=== PATIENT | female | born 1955 | race Caucasian/White ===

== ENCOUNTER 2021-08-01 10:23 | Day surgery (SDC) | payer OTHER, SELFPAY ==
[2021-07-29 10:10] LABS: BASOPHILS % (AUTO) 0.6 % (0.0-2.0); EOSINOPHILS # (AUTO) 0.1 K/uL (0.0-0.4); EOSINOPHILS % (AUTO) 1.2 % (0.0-4.0); HEMATOCRIT 38.9 % (36-48); LYMPHOCYTES % (AUTO) 39.8 % (20.5-51.5); MEAN CORPUSCULAR HEMOGLOBIN 29 pg (27-31); MEAN CORPUSCULAR HGB CONC 33 % (32-36); MEAN CORPUSCULAR VOLUME 87 fL (79.0-98.0); MONOCYTES # (AUTO) 0.4 K/uL (0.0-1.0); MONOCYTES % (AUTO) 5.3 % (1.7-9.3); NEUTROPHILS % (AUTO) 53.1 % (40.0-70.0); PLATELET COUNT (AUTO) 248 K/uL (130-430); RED BLOOD CELL COUNT(AUTO) 4.45 MIL/uL (4.2-6.2); RED CELL DISTRIBUTION WIDTH 13.1 % (9.0-15.0); WHITE BLOOD COUNT (AUTO) 7.5 K/uL (4.8-10.8)
[2021-07-29 10:16] LABS: BILIRUBIN,URINE NEGATIVE (NEGATIVE); BLOOD, URINE 1+ (NEGATIVE); CLARITY/URINE CLEAR (CLEAR); COLOR,URINE YELLOW (YELLOW); GLUCOSE,URINE NEGATIVE (NEGATIVE); KETONES,URINE NEGATIVE (NEGATIVE); LEUKOCYTE ESTERASE ,URINE TRACE (NEGATIVE); NITRITE, URINE NEGATIVE (NEGATIVE); PROTEIN URINE NEGATIVE (NEGATIVE); UROBILINOGEN,URINE 0.2 (0.2-1.0)
[2021-07-29 10:36] LABS: CALCIUM 10.3 mg/dL (8.4-11.0); CREATININE 0.6 mg/dL (0.55-1.30); POTASSIUM 3.9 mmol/L (3.5-5.1)
[2021-07-29 10:50] LABS: PROTHROMBIN TIME 9.8 SECS (9.5-12.5)
[2021-07-29 11:22] LABS: BACTERIA,URINE RARE /HPF (None Seen); MUCUS,URINE 1+ /LPF (None Seen)
[~2021-08-01] VITALS: Ht 162.6 cm; Wt 88.0 kg
[2021-08-01] MEDS ORDERED: PROPOFOL 200MG/ 20ML VIAL (DIPRIVAN) IV ONE (12:07)
[2021-08-01] MEDS ORDERED: NS IRRIG SOLN 1000 ML IR ONE (12:07)
[2021-08-01] MEDS ORDERED: fentaNYL CITRATE/PF 100 MCG/2 ML AMP ONE (12:07)
[2021-08-01] MEDS ORDERED: BUPIVACAINE /EPINEPHRINE/PF 0.25% 30 ML VIAL INJ ONE (12:07)
[2021-08-01] MEDS ORDERED: LR 1,000 ML IV.SOLN IV ONE (12:07)
[2021-08-01] MEDS ORDERED: DEXAMETHASONE SOD PHOSPHATE 4 MG/ML VIAL ONE (12:07)
[2021-08-01] MEDS ORDERED: KETOROLAC TROMETHAMINE 30 MG VIAL ONE (12:07)
[2021-08-01] MEDS ORDERED: ONDANSETRON HCL 4 MG/2 ML VIAL ONE (12:07)
[2021-08-01] MEDS ORDERED: ISOFLURANE 15 MIN GAS INH ONE (12:07)
[2021-08-01] MEDS ORDERED: ACETAMINOPHEN I.V. 1000 MG 100 ML IV PRN (13:00)
[2021-08-01] MEDS ORDERED: HYDROmorphone 1 MG/ML INJ. CARTRIDGE ONE (13:07)
[2021-08-01] MEDS: HYDROmorphone 1 MG/ML INJ. CARTRIDGE IVP PRN ×2 (13:15→13:30)
[2021-08-01 16:34] VITALS: BP_SYST 135
== END 2021-08-01 15:15 | disposition home or self-care (01) ==
LOC: SDS 10:23 → SMU 10:25 → SDS 15:15
PROVIDERS: ATTEND Orthopaedic Surgery
DX: S53.22XA Traumatic rupture of left radial collateral ligament, initial encounter (principal); S63.642A Sprain of metacarpophalangeal joint of left thumb, initial encounter; E11.9 Type 2 diabetes mellitus without complications; E66.9 Obesity, unspecified; I10 Essential (primary) hypertension; W19.XXXA Unspecified fall, initial encounter; Y93.89 Activity, other specified; Y92.89 Other specified places as the place of occurrence of the external cause; Y99.8 Other external cause status; Z79.01 Long term (current) use of anticoagulants; Z79.899 Other long term (current) drug therapy
CPT/HCPCS: 26540; 36415 ×2; 71046; 80048; 81000; 82962; 85025; 85610; 85730; 87426; 93005; J1100; J1170; J1885; J2405; J2704; J3010; J3490; J7120; U0003

== ENCOUNTER 2022-04-12 05:35 | Inpatient (IN) | payer OTHER ==
[2022-04-10 09:33] LABS: BASOPHILS % (AUTO) 0.5 % (0.0-2.0); EOSINOPHILS # (AUTO) 0.1 K/uL (0.0-0.4); EOSINOPHILS % (AUTO) 0.9 % (0.0-4.0); HEMATOCRIT 38.4 % (36-48); HEMOGLOBIN 13.3 g/dL (12.0-16.0); LYMPHOCYTES # (AUTO) 2.7 K/uL (1.0-5.5); LYMPHOCYTES % (AUTO) 31.1 % (20.5-51.5); MEAN CORPUSCULAR HEMOGLOBIN 30 pg (27-31); MEAN CORPUSCULAR HGB CONC 35 % (32-36); MEAN CORPUSCULAR VOLUME 88 fL (79.0-98.0); MONOCYTES # (AUTO) 0.4 K/uL (0.0-1.0); MONOCYTES % (AUTO) 5.1 % (1.7-9.3); NEUTROPHILS # (AUTO) 5.3 K/uL (1.8-7.7); NEUTROPHILS % (AUTO) 62.4 % (40.0-70.0); PLATELET COUNT (AUTO) 240 K/uL (130-430); RED BLOOD CELL COUNT(AUTO) 4.38 MIL/uL (4.2-6.2); RED CELL DISTRIBUTION WIDTH 12.6 % (9.0-15.0); WHITE BLOOD COUNT (AUTO) 8.5 K/uL (4.8-10.8)
[2022-04-10 09:43] LABS: BILIRUBIN,URINE NEGATIVE (NEGATIVE); CLARITY/URINE CLEAR (CLEAR); COLOR,URINE YELLOW (YELLOW); GLUCOSE,URINE NEGATIVE (NEGATIVE); KETONES,URINE NEGATIVE (NEGATIVE); LEUKOCYTE ESTERASE ,URINE NEGATIVE (NEGATIVE); NITRITE, URINE NEGATIVE (NEGATIVE); PH,URINE 5.5 (5.0-8.0); PROTEIN URINE NEGATIVE (NEGATIVE); UROBILINOGEN,URINE 0.2 (0.2-1.0)
[2022-04-10 09:49] LABS: BLOOD, URINE TRACE (NEGATIVE)
[2022-04-10 09:52] LABS: CALCIUM 9.8 mg/dL (8.4-11.0); CREATININE 0.64 mg/dL (0.55-1.30)
[2022-04-10 09:57] LABS: INR 0.9 (0.8-1.2); PROTHROMBIN TIME 9.5 SECS (9.5-12.5)
[2022-04-10 10:27] LABS: BACTERIA,URINE RARE /HPF (None Seen); MUCUS,URINE 1+ /LPF (None Seen); RBC,URINE 0-3 /HPF (0-3); WBC,URINE 0-3 /HPF (0-3)
[~2022-04-12] VITALS: Ht 162.6 cm; Wt 87.1 kg
[2022-04-12] MEDS ORDERED: CEFAZOLIN SOD 2 GM in D5W 50 ML IV ONE (06:30)
[2022-04-12] MEDS ORDERED: ceFAZolin SODIUM 2 GM in D5W 100 ML IV ONE (06:45)
[2022-04-12] MEDS ORDERED: BUPIVACAINE LIPOSOME/PF 266 MG/20 ML VIAL INFIL ONE (07:25)
[2022-04-12] MEDS ORDERED: ACETAMINOPHEN I.V. 1000 MG 100 ML IV ONE (07:25)
[2022-04-12] MEDS ORDERED: NS IRRIG SOLN 1000 ML IR ONE (07:30)
[2022-04-12] MEDS ORDERED: PROPOFOL 200MG/ 20ML VIAL (DIPRIVAN) IV ONE (07:30)
[2022-04-12] MEDS ORDERED: TRANEXAMIC ACID 1,000 MG/10 ML VIAL IV ONE (07:30)
[2022-04-12] MEDS ORDERED: ONDANSETRON HCL 4 MG/2 ML VIAL IVP ONE (07:30)
[2022-04-12] MEDS ORDERED: MIDAZOLAM HCL 5 MG/5 ML VIAL IVP ONE (07:30)
[2022-04-12] MEDS ORDERED: LR 1,000 ML IV.SOLN IV ONE (07:30)
[2022-04-12] MEDS ORDERED: BUPIVACAINE /PF 0.25% 30 ML VIAL INJ ONE (07:30)
[2022-04-12] MEDS ORDERED: KETOROLAC TROMETHAMINE 30 MG VIAL IVP ONE (07:30)
[2022-04-12] MEDS ORDERED: ePHEDrine sulfate 50 MG/ML VIAL IVP ONE (07:30)
[2022-04-12] MEDS ORDERED: BUPIVACAINE /EPINEPHRINE/PF 0.25% 30 ML VIAL INJ ONE (07:30)
[2022-04-12] MEDS ORDERED: CEFAZOLIN 2 GM IVPB PREMIX 50 ML IV ONE (07:30)
[2022-04-12] MEDS ORDERED: MORPHINE SULFATE 10MG/10ML PF AMP EP ONE (07:30)
[2022-04-12] MEDS ORDERED: NS 100 ML BAG IV ONE (07:30)
[2022-04-12] MEDS ORDERED: BUPIVACAINE /DEX PF 0.75% SPINAL 2 ML AMP INJ ONE (07:30)
[2022-04-12] MEDS ORDERED: VANCOMYCIN HCL 1000 MG/VIAL IV ONE (07:30)
[2022-04-12] MEDS ORDERED: NS 1000 ML IV.SOLN IV ONE (07:30)
[2022-04-12] MEDS ORDERED: methylPREDNISolone ACETATE 80 MG/ML IM ONE (07:30)
[2022-04-12] MEDS ORDERED: LIDOCAINE 1% 10 MG/ML, 20 ML MDV INJ ONE (07:30)
[2022-04-12] MEDS ORDERED: DEXTROSE 50% JECT 50 ML DISP.SYRIN IVP PRN (07:45)
[2022-04-12] MEDS ORDERED: GLUCOSE (DEXTROSE) ORAL GEL -Adults PO PRN (07:45)
[2022-04-12] MEDS ORDERED: BISACODYL 10 MG/SUPPOSITORY RC PRN (07:45)
[2022-04-12] MEDS ORDERED: DIPHENHYDRAMINE HCL 25 MG CAPSULE PO PRN (07:45)
[2022-04-12] MEDS ORDERED: METOCLOPRAMIDE HCL 10 MG/2 ML VIAL IVP PRN ×2 (07:45→08:45)
[2022-04-12] MEDS ORDERED: INSULIN REGULAR, HUMAN 100 UNITS/ML, 3 ML VIAL (humuLIN R) SUBCUT PRN (07:45)
[2022-04-12] MEDS ORDERED: LACTULOSE 20 GM/30 ML UDC PO PRN (07:45)
[2022-04-12] MEDS ORDERED: NALOXONE HCL 0.4 MG/ML AMP (NARCAN) IVP PRN ×4 (07:45→08:45)
[2022-04-12] MEDS ORDERED: D5W 1,000 ML IV PRN (07:45)
[2022-04-12] MEDS ORDERED: BUTA1CAP43 PO (07:59)
[2022-04-12] MEDS ORDERED: CELE200C PO (07:59)
[2022-04-12] MEDS ORDERED: METO50TA7 PO (07:59)
[2022-04-12] MEDS ORDERED: METF750T46 PO (07:59)
[2022-04-12] MEDS ORDERED: CYCL10TA24 PO (07:59)
[2022-04-12] MEDS ORDERED: HYDROmorphone 1 MG/ML INJ. CARTRIDGE IVP PRN ×5 (08:45→11:00)
[2022-04-12] MEDS ORDERED: LABETALOL 100 MG/ 20ML VIAL IVP PRN (08:45)
[2022-04-12] MEDS ORDERED: ONDANSETRON HCL 4 MG/2 ML VIAL IVP PRN ×2 (08:45→11:45)
[2022-04-12] MEDS ORDERED: DIPHENHYDRAMINE INJ 50 MG/ML VIAL IVP PRN (08:45)
[2022-04-12] MEDS ORDERED: MIDAZOLAM HCL 2 MG/2 ML VIAL (VERSED) IVP PRN (08:45)
[2022-04-12] MEDS ORDERED: hydrALAZINE HCL 20 MG/ML VIAL IVP PRN (08:45)
[2022-04-12] MEDS ORDERED: MEPERIDINE HCL/PF 25 MG/ML DISP.SYRIN IVP PRN (08:45)
--- NOTE | 2022-04-12 10:27 | NUR ---
Discharge Planning: DCP faxed to [facility] [phone] DCP to follow up Addendum: 04/12/22 at 1436 by Treva MORRIS [place] [phone] accepted but requesting H&P and PT nots DCP made aware still pending. DCP to follow up
[2022-04-12] MEDS ORDERED: traMADol HCL HCL 50 MG TABLET (ULTRAM) PO PRN (11:00)
[2022-04-12] MEDS ORDERED: LORATADINE 10 MG TABLET PO PRN (11:00)
[2022-04-12] MEDS ORDERED: oxyCODONE HCL 5 MG TABLET PO PRN (11:00)
[2022-04-12 11:45] VITALS: BP_SYST 118
--- NOTE | 2022-04-12 11:45 | NUR ---
PACU ADMIT Received report from Francisca RN from PACU, received pt AAOx4, no s/s resp distress, no c/o pain or discomfort. Right knee with dressing clean, dry and intact, ice pack to knee, pillow under ankle. Pt oriented to the unit, call light, pain management. Neurovascular check done. Side rails up x3, bed alarm on fro safety. Call light within reach.
[2022-04-12 12:05] VITALS: BP_SYST 118
[2022-04-12] MEDS: NACL 0.9% 1,000 ML IV SCH (13:21)
[2022-04-12] MEDS: ACETAMINOPHEN 500 MG TABLET PO SCH ×2 (14:54→22:00)
[2022-04-12] MEDS: KETOROLAC TROMETHAMINE 10 MG TABLET (TORADOL) PO SCH ×2 (15:17→22:00)
[2022-04-12 16:03] VITALS: BP_SYST 132
[2022-04-12] MEDS: ceFAZolin SODIUM 2 GM in D5W 50 ML IV SCH (16:28)
[2022-04-12] MEDS: oxyCODONE HCL 5 MG TABLET PO PRN ×2 (18:15→22:42)
--- NOTE | 2022-04-12 19:43 | NUR ---
CLOSING NOTE Pt sitting up in bed with no s/s resp distress,no further c/o pain or discomfort. IVF infusing well to LFA at ordered rate with no s/s infiltration to site. Right knee dressing clean,dry and intact with ice packs in place.Right heel elevated on pillow.Pt using incentive spirometer-up to 2500. Endorsed care to warehouse supervisor 3rd shift nurse. All precautions remain in place,call light within reach.
[2022-04-12 20:00] VITALS: BP_SYST 135
[2022-04-12] MEDS: SENNOSIDES/DOCUSATE SODIUM 1 TAB TABLET(SENOKOT-S) PO SCH (21:00)
[2022-04-13] VITALS: BP_SYST 138
[2022-04-13] MEDS: ceFAZolin SODIUM 2 GM in D5W 50 ML IV SCH ×2 (00:10→08:00)
[2022-04-13] MEDS: oxyCODONE HCL 5 MG TABLET PO PRN ×2 (03:48→09:20)
[2022-04-13] MEDS: NACL 0.9% 1,000 ML IV SCH ×2 (04:45→14:58)
[2022-04-13] MEDS: ACETAMINOPHEN 500 MG TABLET PO SCH ×2 (06:00→15:00)
[2022-04-13] MEDS: KETOROLAC TROMETHAMINE 10 MG TABLET (TORADOL) PO SCH (06:45)
[2022-04-13 06:50] LABS: BASOPHILS % (AUTO) 0.1 % (0.0-2.0); EOSINOPHILS % (AUTO) 0.1 % (0.0-4.0); HEMATOCRIT 32.7 % (36-48); HEMOGLOBIN 11.3 g/dL (12.0-16.0); LYMPHOCYTES # (AUTO) 2.4 K/uL (1.0-5.5); LYMPHOCYTES % (AUTO) 22.8 % (20.5-51.5); MEAN CORPUSCULAR HEMOGLOBIN 31 pg (27-31); MEAN CORPUSCULAR HGB CONC 35 % (32-36); MEAN CORPUSCULAR VOLUME 89 fL (79.0-98.0); MONOCYTES # (AUTO) 0.7 K/uL (0.0-1.0); MONOCYTES % (AUTO) 6.5 % (1.7-9.3); NEUTROPHILS # (AUTO) 7.4 K/uL (1.8-7.7); NEUTROPHILS % (AUTO) 70.5 % (40.0-70.0); PLATELET COUNT (AUTO) 238 K/uL (130-430); RED BLOOD CELL COUNT(AUTO) 3.68 MIL/uL (4.2-6.2); RED CELL DISTRIBUTION WIDTH 12.6 % (9.0-15.0); WHITE BLOOD COUNT (AUTO) 10.6 K/uL (4.8-10.8)
[2022-04-13 07:04] LABS: ALBUMIN 3.2 g/dL (3.4-4.8); CALCIUM 8.8 mg/dL (8.4-11.0); CREATININE 0.72 mg/dL (0.55-1.30); TOTAL BILIRUBIN 0.5 mg/dL (0.0-1.0)
--- NOTE | 2022-04-13 07:35 | NUR ---
PT IS ALERT AND ORIENTED X4. DENIES ANY PAIN. NO NEGATIVE S/S. DENIES SHORTNESS OF BREATH. PT IS ON ROOM AIR. STATES THAT SHE"SOESNT FEEL VERY HUNGRY". WILL CONTINUE TO MONITOR
[2022-04-13] MEDS ORDERED: OXYIR5 PO (08:35)
[2022-04-13] MEDS ORDERED: DECADRON 4 MG TABLET PO SCH (09:00)
[2022-04-13] MEDS ORDERED: ASPIRIN 81 MG TAB.CHEW PO SCH (09:00)
[2022-04-13] MEDS: SENNOSIDES/DOCUSATE SODIUM 1 TAB TABLET(SENOKOT-S) PO SCH (09:21)
[2022-04-13] MEDS ORDERED: CELECOXIB 200 MG CAPSULE PO SCH (11:00)
[2022-04-13 11:25] VITALS: BP_SYST 137
--- NOTE | 2022-04-13 12:54 | NUR ---
PHYSICAL THERAPY CO-SIGN The Physical Therapy Progress Notes documented by Piping Design Specialist have been reviewed. Reviewed/Co-Signed by: Kelton Diaz Documentation Done by: VASILE DEL ROSARIO PTA Addendum: 04/13/22 at 1254 by Kelton Diaz PT Amended: Links added.
[2022-04-13 15:24] VITALS: BP_SYST 147
[2022-04-13 15:30] VITALS: BP_SYST 147
--- NOTE | 2022-04-13 16:30 | NUR ---
ISSUES PRINTING PT'S DISCHARGE INSTRUCTION D/T CONFLICT OF ASPIRIN AND OXYCODONE.
== END 2022-04-13 17:00 | disposition home health service (06) | DRG 470 ==
LOC: SMU 05:35
PROVIDERS: ADMIT Student in an Organized Health Care Education/Training Program; ATTEND Student in an Organized Health Care Education/Training Program
PROC: 0SRC0J9 Replacement of Right Knee Joint with Synthetic Substitute, Cemented, Open Approach (ICD-10-PCS; principal; 2022-04-12 07:40)
DX: M17.11 Unilateral primary osteoarthritis, right knee (principal); Z20.822 Contact with and (suspected) exposure to COVID-19
CPT/HCPCS: 36415; 71045; 73560-TC; 80048; 80053; 81000; 82962; 85025; 85610-TC; 85730-TC; 87081; 88305; 88311; 96379; 97110-GP; 97116-GP; 97530-GP; C9290; J0131; J0690; J1040; J1170; J1885; J2001; J2250; J2274; J2405; J2704; J3370; J3465; J3490; J7030; J7060; J7120; J8540; U0003